=== PATIENT | male | born 1955 | race African-American/Black ===

== ENCOUNTER 2022-02-15 19:57 | Emergency (ER) | payer OTHER ==
[2022-02-14] MEDS: IV RINGERS SOLUTION,LACTATED 1,000 ML IV SCH (20:45)
[~2022-02-15] VITALS: Ht 193 cm; Wt 97.7 kg
--- NOTE | 2022-02-15 20:04 | PHYS DOC ---
General Adult HPI: HPI: ".. I ve been feeling sick since .. fever, chills, aches... like I got the flu or something.. I got my Flu, COVID and Pneumonia shots... " Patient is a 66 year old male who presents with above hx and complaints generalized myalgia, arthralgia, malaise, fever, chills, and a nonproductive cough since Friday the January. Patient states she is up-to-date on flu vaccinations Pneumovax and COVID. No recent travel. No specific ill contacts. Patient normally follows with Dr. Villarreal. Review of Systems: Review of Systems: Constitutional: History of fever or chills Eyes: Denies change in visual acuity HENT: Denies nasal congestion or sore throat Respiratory: History nonproductive cough and shortness of breath Cardiovascular: Denies chest pain or edema GI: Denies abdominal pain, vomiting, bloody stools or diarrhea. Some nausea complaints : Denies dysuria Musculoskeletal: Complains of generalized muscle, back pain and joint pain Integument: Denies rash Neurologic: Denies headache, focal weakness or sensory changes Endocrine: Denies polyuria or polydipsia Lymphatic: Denies swollen glands Psychiatric: Denies depression or anxiety Family History: Family History: Noncontributory to presentation Current Medications: Current Meds: No known drug allergies Allergies: Allergies: See nursing for home meds Physical Exam: PE: Constitutional: Moderate acute distress, non-toxic appearance. [] HENT: Normocephalic, atraumatic, bilateral external ears normal, oropharynx moist, no oral exudates, nose swollen turbinates clear rhinorrhea Eyes: PERRLA, EOMI, conjunctiva normal, no discharge. [] Neck: Normal range of motion, no tenderness, supple, no stridor. [] Cardiovascular: Bradycardia cardia heart rate regular rhythm, no murmur [] Lungs & Thorax: Bilateral breath sounds equal apex with few scattered wheezes on auscultation [] Abdomen: Bowel sounds normal, soft, no tenderness, no masses, no pulsatile masses. [] Skin: Warm, dry, no erythema, no rash. [] Back: No tenderness, no CVA tenderness. [] Extremities: Generalized muscle and joint tenderness, no cyanosis, no clubbing, ROM intact, no edema. [] No cording in legs appreciated. Neurologic: Alert and oriented X 3, normal motor function, normal sensory function, no focal deficits noted. [] Psychologic: Affect normal, judgement normal, mood normal. [] EKG: EKG: My interpretation of EKG shows a sinus bradycardia at 60 bpm. There is a prolonged TX interval of 1000 ms. There is a right bundle branch block and RVH repolarization abnormality. But no findings of acute STEMI with contralateral changes. Time of EKG is 2056 hrs. [] My interpretation second EKG shows sinus rhythm at 61 bpm. Still slight prolonged TX, bundle branch block and RVH but no acute interval change. No findings of acute STEMI or contralateral changes. Time of EKG is 00 39 minutes Radiology/Procedures: Radiology/Procedures: [] IMAGING REPORT Signed PATIENT: MICHAEL SANTANAACCOUNT: [id number] : 1955 LOCATION: ER AGE: 66 SEX: M EXAM STATUS: REG ER ORD. PHYSICIAN: JESUS MAGDALENO MD REASON: OMNI 350,100ML IV.Dyspnea, elevated D-dimer.HX EMPHYSEMA PROCEDURE: CT ANGIOGRAPHY CHEST PQRS Compliance Statement: One or more of the following individualized dose reduction techniques were utili zed for this examination: 1. Automated exposure control 2. Adjustment of the mA and/or kV according to patient size 3. Use of iterative reconstruction technique CTA CHEST 02/15/2022 10:54 PM INDICATION: Elevated d-dimer. Emphysema. Dyspnea. COMPARISON: None available TECHNIQUE: Axial CT images of the chest were obtained after the intravenous administration of nonionic contrast. Coronal and sagittal reformats are provided. Maximum intensity projection images of the thoracic vasculature are provided. FINDINGS: The thyroid gland is normal in appearance. There are no pathologically enlarged axillary, mediastinal or hilar lymph nodes. The heart size is within normal limits. No significant pericardial effusion. Thoracic aorta is normal in course and caliber. Moderate centrilobular and paraseptal pulmonary emphysema. There is adequate opacification of the pulmonary arterial system. There there are no filling defects within the pulmonary arterial system to suggest acute or chronic pulmonary embolus. 8 mm solid noncalcified pulmonary nodule identified within the posterior right upper lobe (series 4, image 45). There are no pulmonary infiltrates. There are no pleural effusions. No pulmonary vascular congestion or pneumothorax. Bronchial wall thickening compatible with nonspecific bronchitis. Visualized portions of the upper abdomen are within normal limits. No suspicious osseous lesions are visualized. IMPRESSION: There is no evidence for acute or chronic pulmonary embolism. 8 mm solid noncalcified pulmonary nodule in the posterior right upper lobe. Fleischner guidelines for incidentally detected pulmonary nodules suggests CT chest at 6-12 months, then consider CT at 18-24 months for single solid noncalcified pulmonary nodule 6-8 mm in size. Moderate centrilobular and paraseptal pulmonary emphysema. Bronchial wall thickening compatible with nonspecific bronchitis. Electronically signed by: Brandt Gomez MD (02/15/2022 11:54 PM) [facility] DICTATED AND SIGNED BY: BRANDT GOMEZ MD DATE: 02/15/22 [id number] CC: BRENNAN VILLARREAL MD; JESUS MAGDALENO MD ~ [place] [address] IMAGING REPORT Signed PATIENT: MICHAEL SANTANAACCOUNT: [id number] : 1955 LOCATION: ER AGE: 66 SEX: M EXAM STATUS: REG ER ORD. PHYSICIAN: JESUS MAGDALENO MD REASON: dyspnea PROCEDURE: PORTABLE CHEST 1V XR CHEST 1V 02/15/2022 8:29 PM INDICATION: Dyspnea COMPARISON: 09/27/2008 TECHNIQUE: Portable frontal view of the chest is provided. FINDINGS: The cardiomediastinal silhouette is within normal limits. Lungs are clear. There are no significant pleural effusions. There is no pulmonary vascular congestion. No pneumothorax. No suspicious osseous abnormality. IMPRESSION: There is no acute cardiopulmonary process. Electronically signed by: Brandt Gomez MD (02/15/2022 9:04 PM) [facility] DICTATED AND SIGNED BY: BRANDT GOMEZ MD DATE: 02/15/22 0578 CC: BRENNAN VILLARREAL MD; JESUS MAGDALENO MD ~ Heart Score: C/O Chest Pain: N/A Risk Factors: Risk Factors: DM, Current or recent (<one month) smoker, HTN, HLP, family history of CAD, obesity. Risk Scores: Score 0 - 3: 2.5% MACE over next 6 weeks - Discharge Home Score 4 - 6: 20.3% MACE over next 6 weeks - Admit for Clinical Observation Score 7 - 10: 72.7% MACE over next 6 weeks - Early Invasive Strategies Course & Med Decision Making: Course & Med Decision Making Pertinent Labs and Imaging studies reviewed. (See chart for details) Use MDI two puffs four times a day. Take Zofran for nausea and vomiting. Zithromax 250 day. Tylenol and ibuprofen for discomfort. Follow-up primary care. Impression: 1. Viral syndrome 2. Bronchiectasis 3. Emphysema/COPD 4. CK= 853 5. Elevation D-dimer 1.02 [] Dragon Disclaimer: Dragon Disclaimer: This electronic medical record was generated, in whole or in part, using a voice recognition dictation system. Departure Departure: Referrals: BRENNAN VILLARREAL MD (PCP) Scripts Azithromycin (ZITHROMAX) 250 Mg Tablet 250 MG PO DAILY for ANTI-BIOTIC, #5 TAB 0 Refills Prov: JESUS MAGDALENO MD 02/16/22 Ondansetron Hcl (ONDANSETRON HCL) 8 Mg Tablet 8 MG PO QIDPRN PRN for NAUSEA/VOMITING, #30 TAB Prov: JESUS MAGDALENO MD 02/16/22 Dragon Disclaimer This chart was dictated in whole or in part using Voice Recognition software in a busy, high-work load, and often noisy Emergency Department environment. It may contain unintended and wholly unrecognized errors or omissions. JESUS MAGDALENO MD Feb 15, 2022 20:04
[2022-02-15] MEDS ORDERED: KETOROLAC 30 MG/ML VIAL. IVP ONE (21:00)
--- NOTE | 2022-02-15 21:06 | RAD ---
XR CHEST 1V 02/15/2022 8:29 PM INDICATION: Dyspnea COMPARISON: 09/27/2008 TECHNIQUE: Portable frontal view of the chest is provided. FINDINGS: The cardiomediastinal silhouette is within normal limits. Lungs are clear. There are no significant pleural effusions. There is no pulmonary vascular congestion. No pneumothora x. No suspicious osseous abnormality. IMPRESSION: There is no acute cardiopulmonary process. Electronically signed by: Fany Harmon MD (02/15/2022 9:04 PM) [facility]
[2022-02-15 21:13] LABS: BASO # 0.1 x10^3/uL (0.0-0.2); BASO % 1 % (0-3); EOS # 0.1 x10^3/uL (0.0-0.7); EOS % 1 % (0-3); HEMATOCRIT 45.7 % (39.0-53.0); LYMPH # 1.4 x10^3/uL (1.0-4.8); LYMPH % 16 % (24-48); MEAN CORPUSCULAR HEMOGLOBIN 28 pg (25-35); MEAN CORPUSCULAR HGB CONC 33 g/dL (31-37); MEAN CORPUSCULAR VOLUME 87 fL (79-100); MONO # 0.9 x10^3/uL (0.0-1.1); MONO % 11 % (0-9); NEUT # 6.4 x10^3uL (1.8-7.7); NEUT % 72 % (31-73); PLATELET COUNT 320 x10^3/uL (140-400); RED BLOOD COUNT 5.28 x10^6/uL (4.30-5.70); WHITE BLOOD COUNT 8.8 x10^3/uL (4.0-11.0)
[2022-02-15] MEDS ORDERED: IV RINGERS SOLUTION,LACTATED 1,000 ML IV ONE (21:15)
[2022-02-15] MEDS ORDERED: oxyCODONE/APAP 5/325 1 TAB TABLET PO ONE (21:15)
[2022-02-15 21:20] LABS: CALCIUM 9.1 mg/dL (8.5-10.1); CREATININE 0.7 mg/dL (0.7-1.3); GFR 137.4
[2022-02-15 21:28] LABS: INFLUENZA A PATIENT NEGATIVE (NEGATIVE); INFLUENZA B PATIENT NEGATIVE (NEGATIVE)
[2022-02-15 21:33] LABS: ALBUMIN 3.7 g/dL (3.4-5.0); DIRECT BILIRUBIN 0.1 mg/dL (0.0-0.2); MAGNESIUM 2.2 mg/dL (1.8-2.4); TOTAL BILIRUBIN 0.5 mg/dL (0.2-1.0); TOTAL PROTEIN 7.1 g/dL (6.4-8.2)
[2022-02-15 21:37] LABS: AMPHETAMINE/METHAMPHETAMINE NEG (NEG); BARBITURATES NEG (NEG); BENZODIAZEPINES NEG (NEG); CANNABINOIDS NEG (NEG); COCAINE NEG (NEG); METHADONE NEG (NEG); OPIATES NEG (NEG); PHENCYCLIDINE NEG (NEG)
[2022-02-15 21:40] LABS: BACTERIA,URINE 0 /HPF (0-FEW); CLARITY,URINE CLEAR; COLOR,URINE YELLOW; GLUCOSE,URINE NEG (NEG); NITRITE,URINE NEG (NEG); RBC,URINE 0 /HPF (0-2); WBC,URINE 0 /HPF (0-4)
[2022-02-15] MEDS ORDERED: IOHEXOL 350 MG/ML 100 ML VIAL. IV ONE (23:00)
[2022-02-15] MEDS: IV RINGERS SOLUTION,LACTATED 1,000 ML IV SCH (23:46)
--- NOTE | 2022-02-15 23:56 | RAD ---
PQRS Compliance Statement: One or more of the following individualized dose reduction techniques were utilized for this examinat ion: 1. Automated exposure control 2. Adjustment of the mA and/or kV according to patient size 3. Use of iterative reconstruction technique CTA CHEST 02/15/2022 10:54 PM INDICATION: Elevated d-dimer. Emphysema. Dyspnea. COMPARISON: None available TECHNIQUE: Axial CT images of the chest were obtained after the intravenous administration of nonioni c contrast. Coronal and sagittal reformats are provided. Maximum intensity projection images of the t horacic vasculature are provided. FINDINGS: The thyroid gland is normal in appearance. There are no pathologically enlarged axillary, mediastinal or hilar lymph nodes. The heart size is within normal limits. No significant pericardial effusion. T horacic aorta is normal in course and caliber. Moderate centrilobular and paraseptal pulmonary emphysema. There is adequate opacification of the pul monary arterial system. There there are no filling defects within the pulmonary arterial system to carpio ggest acute or chronic pulmonary embolus. 8 mm solid noncalcified pulmonary nodule identified within the posterior right upper lobe (series 4, image 45). There are no pulmonary infiltrates. There are no pleural effusions. No pulmonary vascular congestion or pneumothorax. Bronchial wall thickening compatible with nonspecific bronchitis. Visualized portions of the upper abdomen are within normal limits. No suspicious osseous lesions are visualized. IMPRESSION: There is no evidence for acute or chronic pulmonary embolism. 8 mm solid noncalcified pulmonary nodule in the posterior right upper lobe. Fleischner guidelines for incidentally detected pulmonary nodules suggests CT chest at 6-12 months, then consider CT at 18-24 months for single solid noncalcified pulmonary nodule 6-8 mm in size. Moderate centrilobular and paraseptal pulmonary emphysema. Bronchial wall thickening compatible with nonspecific bronchitis. Electronically signed by: Fany Harmon MD (02/15/2022 11:54 PM) [facility]
[2022-02-16] MEDS ORDERED: AZIT250T PO (00:26)
[2022-02-16] MEDS ORDERED: ONDA-85 PO (00:26)
[2022-02-16] MEDS ORDERED: AZITHROMYCIN 250 MG TABLET. PO ONE (00:30)
[2022-02-16] MEDS ORDERED: ALBUTEROL SULFATE 8GM INHALER. INH ONE (00:30)
[2022-02-16 01:06] VITALS: BP 114/71
--- NOTE | 2022-02-17 01:09 | EKG ---
[address] [address] Test Date: 2022-02-15 Test Time: 20:57:09 Pat Name: MICHAEL SANTANA Department: Room: Gender: M Branch Lead: KELVIN : 1955 Requested By: JESUS MAGDALENO Order Number: [id number] Reading MD: Measurements Intervals [place] Rate: 60 P: 46 MT: 232 QRS: 35 QRSD: 142 T: 65 QT: 386 QTc: 386 Interpretive Statements SINUS RHYTHM PROLONGED MT INTERVAL RIGHT BUNDLE BRANCH BLOCK RVH WITH REPOLARIZATION ABNORMALITY ABNORMAL ECG RI6.02 No previous ECG available for comparison
--- NOTE | 2022-02-17 01:10 | EKG ---
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
[2022-02-17] MEDS ORDERED: ONDA4TAB12 PO (15:42)
== END 2022-02-16 01:16 | disposition home or self-care (01) ==
LOC: ER 20:06
DX: B34.9 Viral infection, unspecified (principal); J47.9 Bronchiectasis, uncomplicated; R79.1 Abnormal coagulation profile; Z20.822 Contact with and (suspected) exposure to COVID-19
CPT/HCPCS: 36415; 71045; 71275; 80048; 80076; 80307; 81001; 82550; 83690; 83735; 83880; 84443; 84484; 85025; 85379; 85610; 85730; 87428; 93005; 94640; 96361; 96374; 99285; J1885; J7120; 94664

== ENCOUNTER 2022-02-17 10:40 | Emergency (ER) | payer OTHER ==
[~2022-02-17] VITALS: Ht 193 cm; Wt 97.7 kg
[~2022-02-17 10:40] MED LIST: AZIT250T PO; ONDA-85 PO
[2022-02-17] MEDS ORDERED: KETOROLAC 15 MG/ML VIAL. IVP ONE (11:00)
[2022-02-17] MEDS ORDERED: ACETAMINOPHEN 500 MG TABLET PO ONE (11:00)
[2022-02-17] MEDS ORDERED: diphenhydrAMINE 50 MG/ML VIAL IVP ONE (11:00)
[2022-02-17] MEDS ORDERED: IV RINGERS SOLUTION,LACTATED 1,000 ML IV ONE (11:00)
--- NOTE | 2022-02-17 11:02 | PHYS DOC ---
Past History Additional Past Medical Histor: EPHYSEMA Past Surgical History: Other Additional Past Surgical Histo: COLONOSCOPY Adult General Chief Complaint Chief Complaint: ABDOMINAL PAIN HPI HPI Patient is a 66-year-old male who presents with a chief complaint of left lower quadrant abdominal pain that started over the last couple of days, 6 out of 10 and dull and achy in nature with no radiation. States he had some mild nausea but no vomiting. States he had a decreased appetite but has been drinking some fluids. States his urine and stool are normal for him with no blood in either. Denies any recent travels, traumas, fevers, chest pain, shortness of breath. Denies any numbness/weakness/tingling. States he is making urine and stool normally for him. Denies any alcohol or drug use. States that he did have some viral symptoms couple days ago was in the emergency department for that. Review of Systems Review of Systems Review of systems otherwise unremarkable except noted in HPI Allergies Allergies Allergies Coded Allergies Type Severity Reaction Last Updated Verified No Known Drug Allergies 02/15/22 No Physical Exam Physical Exam Constitutional: Well developed, well nourished, no acute distress, non-toxic appearance. [] HENT: Normocephalic, atraumatic, bilateral external ears normal, oropharynx moist, no oral exudates, nose normal. [] Eyes: conjunctiva normal, no discharge. [] Neck: Normal range of motion, no tenderness, supple, no stridor. [] Cardiovascular:Heart rate regular rhythm, no murmur [] Lungs & Thorax: Bilateral breath sounds clear to auscultation [] Abdomen: soft, generalized tenderness around umbilicus with no rebound or guarding,, no masses, no pulsatile masses. [] Skin: Warm, dry, no erythema, no rash. [] Back: No tenderness, no CVA tenderness. [] Extremities: No tenderness, no cyanosis, no clubbing, ROM intact, no edema. [] Neurologic: Alert and oriented X 3, normal motor function, normal sensory function, no focal deficits noted. [] Psychologic: Affect normal, judgement normal, mood normal. [] EKG EKG [] Radiology/Procedures Radiology/Procedures [] Heart Score C/O Chest Pain: No Risk Factors: Risk Factors: DM, Current or recent (<one month) smoker, HTN, HLP, family history of CAD, obesity. Risk Scores: Risk Factors: DM, Current or recent (<one month) smoker, HTN, HLP, family history of CAD, obesity. Course & Med Decision Making Course & Med Decision Making Patient is a 66-year-old male who presents with abdominal pain around left lower quadrant and umbilicus Vital signs not concerning. Physical exam noted above. Given medicines for pain other than opiates as patient is on Suboxone CTA from 2 days [address] concerning. [address] today suggestive of colitis/gastritis. Given GI cocktail. Laboratory analysis not concerning. Discussed all findings with patient. Discussed diet and hydration over the next couple of days to allow for bowel rest and advance of diet over time. Given nausea medicine for home. Discussed symptom management including PPI. Advised to follow-up with primary care physician in the morning to discuss ED visit Gave return precautions to the ED. Patient grateful, verbalized understanding and agreed with plan of discharge [] Dragon Disclaimer Dragon Disclaimer This electronic medical record was generated, in whole or in part, using a voice recognition dictation system. Departure Departure: Impression: Primary Impression: Abdominal pain Additional Impressions: Gastroenteritis Colitis Disposition: HOME / SELF CARE / HOMELESS Condition: STABLE Referrals: BRENNAN PRYOR MD (PCP) Patient Instructions: Colitis, Diet for Gastroesophageal Reflux Disease, Adult, Gastroesophageal Reflux Disease, Adult Additional Instructions: Thank for coming into the emergency department tonight and allowing us to take care of you. Please read the attached information carefully go over things we discussed. Over the next couple of days please eat only a light clear diet with lots of fluids and nothing heavy, no alcohol to no coffee. Please advance her diet as tolerated in a couple of days back to normal to allow some bowel rest. Please continue your home medications and you can include Tylenol at 1000 mg every 8 hours, ibuprofen 800 mg every 8 hours and Benadryl 50 mg every 6 hours. Please also add medicine for heartburn, omeprazole which you can get [id number] take once daily. Please begin taking Tums as well, 3 times a day with meals. Please follow-up tomorrow with your primary care physician update on your ED visit and set up a follow-up as soon as you can. Please come back with new or concerning symptoms as discussed. Problem Qualifiers RODO HART MD Feb 17, 2022 11:02
--- NOTE | 2022-02-17 11:28 | RAD ---
XR CHEST 1V Clinical History: Reason: cardiac w/u / Spl. Instructions: / History: Technique: AP view of the chest was obtained at 02/17/2022 11:11 AM. Comparison: February 15, 2022. Findings: The cardiomediastinal silhouette is normal. The pulmonary vasculature is normal. There is reticular o pacities throughout the lower right lung with curly B lines. Impression: Minimal interstitial infiltrate on the right likely due to fluid overload. Electronically signed by: Faraz King III, MD (02/17/2022 11:26 AM) [facility]
[2022-02-17 12:07] LABS: BASO # 0.1 x10^3/uL (0.0-0.2); BASO % 1 % (0-3); EOS # 0.1 x10^3/uL (0.0-0.7); EOS % 1 % (0-3); HEMATOCRIT 48.8 % (39.0-53.0); LYMPH # 1.5 x10^3/uL (1.0-4.8); LYMPH % 18 % (24-48); MEAN CORPUSCULAR HEMOGLOBIN 29 pg (25-35); MEAN CORPUSCULAR HGB CONC 33 g/dL (31-37); MEAN CORPUSCULAR VOLUME 87 fL (79-100); MONO # 0.9 x10^3/uL (0.0-1.1); MONO % 11 % (0-9); NEUT % 69 % (31-73); PLATELET COUNT 326 x10^3/uL (140-400); RED BLOOD COUNT 5.61 x10^6/uL (4.30-5.70); RED CELL DISTRIBUTION WIDTH 14.8 % (11.5-14.5); WHITE BLOOD COUNT 8.6 x10^3/uL (4.0-11.0)
--- NOTE | 2022-02-17 12:25 | RAD ---
CT ABDOMEN+PELVIS WO dated 02/17/2022 12:01 PM Indication:Reason: LLQ pain / Spl. Instructions: D. CONDRA ORDERED WITHOUT IV OR PO / History: Comparison: No comparison is available. Technique: Helical noncontrast images were performed. One or more of the following individualized dose reduction techniques were utilized for this examinat ion: 1. Automated exposure control 2. Adjustment of the mA and/or kV according to patient size 3. Use of iterative reconstruction technique Findings: There is minimal basilar atelectasis. The liver and spleen are homogeneous in density and normal in c onfiguration. Evaluation of the solid organs is limited without IV contrast. The kidneys show no appa rent mass, calcification or obstruction. The adrenal glands are not enlarged. The pancreas appears no rmal. No retroperitoneal or mesenteric adenopathy is seen. There is no apparent abdominal soft tissue mass. There is mild haziness within the fat posterior to the transverse colon within mesenteric fat, but no enlarged lymph nodes are seen. There may be some thickening of the wall the gastric antrum. N o other inflammatory process is apparent. Images through the pelvis show no apparent abnormality of the distal ureters or bladder. No pelvic or inguinal adenopathy is seen. There is no apparent pelvic soft tissue mass. There is a small amount o f free fluid in the cul-de-sac. There may be some thickening of the wall of the sigmoid colon and rec subhash. Evaluation is somewhat limited by noncontrast technique. There is no evidence of diverticulitis. IMPRESSION: There is a small amount of free fluid in the pelvis. This would not typically be seen in an adult mal e. This may be reactive to an inflammatory process. There is possibly some colitis of the distal colo n. Mild edema is suggested within the abdominal fat through the stomach and transverse colon. This is no nspecific. There may be mild wall thickening of the gastric antrum that could related gastritis, alth ough no history of epigastric pain was given. Electronically signed by: Tab Cornejo Jr., MD (02/17/2022 12:23 PM) [id number]
[2022-02-17 13:04] LABS: LIPASE < 10 U/L (73-393)
[2022-02-17 13:33] LABS: BACTERIA,URINE 0 /HPF (0-FEW); CLARITY,URINE CLEAR; COLOR,URINE YELLOW; GLUCOSE,URINE NEG (NEG); NITRITE,URINE NEG (NEG); RBC,URINE 0 /HPF (0-2); WBC,URINE 0 /HPF (0-4)
[2022-02-17 13:51] LABS: ANION GAP 5 (6-14); BLOOD UREA NITROGEN 9 mg/dL (8-26); BUN/CREATININE RATIO 11 (6-20); CALCIUM 8.6 mg/dL (8.5-10.1); CARBON DIOXIDE 24 mmol/L (21-32); CHLORIDE 103 mmol/L (98-107); CREATININE 0.8 mg/dL (0.7-1.3); GFR 117.8; GLUCOSE 96 mg/dL (70-99); SODIUM 132 mmol/L (136-145)
[2022-02-17 13:57] LABS: ALBUMIN 3.1 g/dL (3.4-5.0); ALK PHOS 69 U/L (46-116); ALT (SGPT) 28 U/L (16-63); AST (SGOT) 21 U/L (15-37); TOTAL BILIRUBIN 0.4 mg/dL (0.2-1.0); TOTAL PROTEIN 6.2 g/dL (6.4-8.2)
[2022-02-17] MEDS ORDERED: LIDO:MAALOX 1:1 20 ML SINGLE DOSE. PO ONE (14:45)
[2022-02-17] MEDS ORDERED: ONDA4TAB12 PO (15:42)
[2022-02-17 16:10] VITALS: BP 108/69
--- NOTE | 2022-02-17 19:00 | EKG ---
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
== END 2022-02-17 16:10 | disposition home or self-care (01) ==
LOC: ER 10:40
DX: K52.9 Noninfective gastroenteritis and colitis, unspecified (principal)
CPT/HCPCS: 36415; 71045; 74176; 80053; 81001; 83690; 84484; 85025; 93005; 96361; 96374; 96375; 99285; J1200; J1885; J7120

== ENCOUNTER 2022-02-19 16:42 | Emergency (ER) | payer OTHER ==
[~2022-02-19] VITALS: Ht 193 cm; Wt 97.7 kg
[~2022-02-19 16:42] MED LIST changes: +ONDA4TAB12 PO
--- NOTE | 2022-02-19 17:41 | PHYS DOC ---
Past History Additional Past Medical Histor: EPHYSEMA (FITZ SOTELO APRN) Past Surgical History: No Surgical History Additional Past Surgical Histo: COLONOSCOPY (FITZ SOTELO APRN) Alcohol Use: None (FITZ SOTELO APRN) General Adult EDM: Chief Complaint: FLANK PAIN HPI: HPI: Patient is a 66-year-old male who presents to the emergency department for right flank pain. Patient was seen in this emergency department previously within the last 5 days with the last visit being on February 17. At that time he was complaining of generalized abdominal pain and whole body pain. He had CT imaging performed previously which did show colitis and gastritis. Patient was advised at that time to take a PPI which she did not start taking. Patient is unsure when his right flank pain started and thinks that it may have been going on for the last 3 days. Patient does not have a history of kidney stones. He has a history of hypertension, diabetes and emphysema. Patient denies nausea, vomiting, diarrhea, urinary complaints, fevers. He rates his pain 10 out of 10 and has been taking Tylenol and ibuprofen as well as Pepto-Bismol. (FITZ SOTELO APRN) Review of Systems: Review of Systems: Constitutional: See HPI GI: See HPI : See HPI Musculoskeletal: See HPI (FITZ SOTELO APRN) Current Medications: Current Meds: Current Medications Medications (Trade) Dose Ordered Sig/Mike Start Time Stop Time Status Last Admin Dose Admin Ketorolac Tromethamine (Toradol 30mg Vial) 30 mg 1X ONCE 02/19/22 17:45 02/19/22 17:46 UNV Sodium Chloride 1,000 ml @ 1,000 mls/hr Q1H 02/19/22 17:45 02/19/22 18:44 UNV (FITZ SOTELO APRN) Allergies: Allergies: Allergies Coded Allergies Type Severity Reaction Last Updated Verified No Known Drug Allergies 02/17/22 No (FITZ SOTELO APRN) Physical Exam: PE: Constitutional: Well developed, well nourished, no acute distress, non-toxic appearance. [] HENT: Normocephalic, atraumatic, bilateral external ears normal, oropharynx moist, no oral exudates, nose normal. [] Eyes: PERRL, EOMI, conjunctiva normal, no discharge. [] Neck: Normal range of motion, no tenderness, supple, no stridor. [] Cardiovascular:Heart rate regular rhythm, no murmur [] Lungs & Thorax: Bilateral breath sounds clear to auscultation [] Abdomen: Bowel sounds normal, soft, mild right upper quadrant tenderness/epigastric with palpation, Navarrete sign no abdominal rigidity or guarding,, no masses, no pulsatile masses. [] Skin: Warm, dry, no erythema, no rash. [] Back: No tenderness, right-sided CVA tenderness Extremities: No tenderness, no cyanosis, no clubbing, ROM intact, no edema. [] Neurologic: Alert and oriented X 3, normal motor function, normal sensory function, no focal deficits noted. [] Psychologic: Affect normal, judgement normal, mood normal. [] (FITZ SOTELO APRN) Current Patient Data: Labs: Laboratory Tests Test 02/19/22 18:49 02/19/22 19:27 Urine Collection Type Unknown Urine Color Yellow Urine Clarity Clear Urine pH 6.5 Urine Specific [place] 1.015 Urine Protein Neg Urine Glucose (UA) Neg mg/dL Urine Ketones (Stick) Neg mg/dL Urine Blood Neg Urine Nitrite Neg Urine Bilirubin Neg Urine Urobilinogen Dipstick 0.2 mg/dL Urine Leukocyte Esterase Neg Urine RBC 0 /HPF Urine WBC 0 /HPF Urine Bacteria 0 /HPF Influenza Type A (Rapid) Negative Influenza Type B (Rapid) Negative SARS-CoV-2 Antigen (Rapid) Negative White Blood Count 7.6 x10^3/uL Red Blood Count 4.96 x10^6/uL Hemoglobin 14.3 g/dL Hematocrit 43.0 % Mean Corpuscular Volume 87 fL Mean Corpuscular Hemoglobin 29 pg Mean Corpuscular Hemoglobin Concent 33 g/dL Red Cell Distribution Width 14.5 % Platelet Count 272 x10^3/uL Neutrophils (%) (Auto) 78 % Lymphocytes (%) (Auto) 14 % Monocytes (%) (Auto) 6 % Eosinophils (%) (Auto) 1 % Basophils (%) (Auto) 1 % Neutrophils # (Auto) 5.9 x10^3uL Lymphocytes # (Auto) 1.1 x10^3/uL Monocytes # (Auto) 0.5 x10^3/uL Eosinophils # (Auto) 0.1 x10^3/uL Basophils # (Auto) 0.1 x10^3/uL Sodium Level 136 mmol/L Potassium Level 4.3 mmol/L Chloride Level 101 mmol/L Carbon Dioxide Level 25 mmol/L Anion Gap 10 Blood Urea Nitrogen 7 mg/dL Creatinine 0.8 mg/dL Estimated GFR (Cockcroft-Gault) 117.8 BUN/Creatinine Ratio 9 Glucose Level 99 mg/dL Calcium Level 9.0 mg/dL Total Bilirubin 0.4 mg/dL Aspartate Amino Transf (AST/SGOT) 13 U/L Alanine Aminotransferase (ALT/SGPT) 24 U/L Alkaline Phosphatase 80 U/L Total Protein 6.4 g/dL Albumin 3.5 g/dL Albumin/Globulin Ratio 1.2 Lipase 22 U/L Current Medications Medications (Trade) Dose Ordered Sig/Mike Route PRN Reason Start Time Stop Time Status Last Admin Dose Admin Sodium Chloride 1,000 ml @ 1,000 mls/hr Q1H IV 02/19/22 17:45 02/19/22 18:44 DC 02/19/22 18:04 Ketorolac Tromethamine (Toradol 30mg Vial) 30 mg 1X ONCE IVP 02/19/22 17:45 02/19/22 17:46 DC 02/19/22 18:02 Morphine Sulfate (Morphine 2mg Syringe) 2 mg 1X ONCE IV 02/19/22 19:15 02/19/22 19:16 DC 02/19/22 19:16 Vital Signs: Vital Signs Date Time Temp Pulse Resp B/P (MAP) Pulse Ox O2 Delivery O2 Flow Rate FiO2 02/19/22 17:30 88 20 124/72 (89) 100 Room Air (FITZ SOTELO APRN) EKG: EKG: [] (FITZ SOTELO APRN) Radiology/Procedures: Radiology/Procedures: []Exam: CT of abdomen and pelvis without contrast INDICATION: Right flank pain TECHNIQUE: Sequential axial images through the abdomen and pelvis obtained without IV contrast. Sagittal and coronal reformatted images were reconstructed from the axial data and reviewed. Exposure: One or more of the following in the visualized dose reduction techniques were utilized for this examination: 1. Automated exposure control 2. Adjustment of the MA and/or KV according to patient size 3. Use of iterative of reconstructive technique Comparisons: CT 02/17/2022 FINDINGS: Heart size is normal. No pericardial effusion. Mucous plugging is noted in the lower lobes. Paraseptal emphysema is again noted. No pleural effusion. Evaluation of solid abdominal organs is limited secondary to noncontrast technique. Liver, spleen, gallbladder and adrenals are unremarkable. There is inflammation surrounding the pancreatic head involving the gastric antrum and proximal duodenum with effacement of the adjacent fat planes. No discrete pancreatic ductal dilatation is identified on this noncontrast study. No perinephric inflammation or hydronephrosis. No renal or ureteral calculi are identified. Bladder is partially distended and not well evaluated. Prostate is not enlarged. Small amount of free fluid noted in the pelvis, similar to prior. No free intra- abdominal air. Large and small bowel are unremarkable. Appendix is normal. No obstruction. Abdominal aorta has normal course and caliber. There are several prominent mesenteric lymph nodes in the right upper quadrant mesentery adjacent to the pancreatic head. No suspicious osseous lesions or acute fractures. IMPRESSION: 1. Inflammatory changes surrounding the pancreatic head, gastric antrum and proximal duodenum. Findings could relate to pancreatitis or gastroenteritis. Correlate with lipase and symptomatology. Follow-up imaging following resolution of this acute inflammatory process is recommended. 2. Small amount of free fluid noted in the pelvis which is abnormal and likely related to the above inflammatory process. Electronically signed by: Fran Barton MD (02/19/2022 6:42 PM) [facility] DICTATED AND SIGNED BY: FRAN BARTON MD DATE: 02/19/221829 CC: BRENNAN PRYOR MD; EMERGENCY,DEPARTMENT; FITZ SOTELO APRN ~ (FITZ SOTELO APRN) Heart Score: C/O Chest Pain: N/A Risk Factors: Risk Factors: DM, Current or recent (<one month) smoker, HTN, HLP, family history of CAD, obesity. Risk Scores: Score 0 - 3: 2.5% MACE over next 6 weeks - Discharge Home Score 4 - 6: 20.3% MACE over next 6 weeks - Admit for Clinical Observation Score 7 - 10: 72.7% MACE over next 6 weeks - Early Invasive Strategies (FITZ SOTELO APRN) Course & Med Decision Making: Course & Med Decision Making Pertinent Labs and Imaging studies reviewed. (See chart for details) [] Patient presents to the emergency department for right flank pain. Patient is tender in his right upper quadrant epigastric region. Work-up in the ER consisted of blood work, urinalysis and CT imaging of abdomen and pelvis. Patient treated with IV fluids and pain medication. Patient CBC was unremarkable, he did not have any leukocytosis. Negative CMP and lipase. Urinalysis showed no acute infection. Negative for influenza and Covid testing. Patient CT scan shows inflammatory changes around the pancreatic head possibly pancreatitis versus gastroenteritis is read by the radiologist. Patient continues to have intractable abdominal pain is received multiple doses of IV pain medication. I discussed the findings with patient. He reports that his pain is not controlled I offered transfer to [facility] for GI consultation and IV pain medication. He is agreeable to transfer at this time. I contacted Dr. Britton with GI at [facility] place a consultation. I discussed patient's case with Dr. mancera who agreed to admit the patient under his services for pancreatitis. IV fluids, n.p.o. diet and pain medication ordered. No antibiotics ordered patient does not have any leukocytosis. (FITZ SOTELO APRN) Dragon Disclaimer: Dragon Disclaimer: This electronic medical record was generated, in whole or in part, using a voice recognition dictation system. (FITZ SOTELO APRN) Attending Co-Sign The patient was seen and interviewed as well as examined at the bedside. The chart was reviewed. The case was discussed. Agree with the plan of care. (HUMBERTO STEWART DO) Departure Departure: Impression: Primary Impression: Pancreatitis Qualified Codes: K85.90 - Acute pancreatitis without necrosis or infection, unspecified Disposition: 02 SHORT TERM HOSPITAL Condition: GOOD Referrals: BRENNAN PRYOR MD (PCP) FITZ SOTELO APRN Feb 19, 2022 17:40 HUMBERTO STEWART DO Feb 20, 2022 14:08
[2022-02-19] MEDS ORDERED: IV NORMAL SALINE 1,000ML 1,000 ML IV SCH (17:45)
[2022-02-19] MEDS ORDERED: KETOROLAC 30 MG/ML VIAL. IVP ONE (17:45)
--- NOTE | 2022-02-19 18:45 | RAD ---
Exam: CT of abdomen and pelvis without contrast INDICATION: Right flank pain TECHNIQUE: Sequential axial images through the abdomen and pelvis obtained without IV contrast. Sagit osiel and coronal reformatted images were reconstructed from the axial data and reviewed. Exposure: One or more of the following in the visualized dose reduction techniques were utilized for this examination: 1. Automated exposure control 2. Adjustment of the MA and/or KV according to patient size 3. Use of iterative of reconstructive technique Comparisons: CT 02/17/2022 FINDINGS: Heart size is normal. No pericardial effusion. Mucous plugging is noted in the lower lobes. Parasepta l emphysema is again noted. No pleural effusion. Evaluation of solid abdominal organs is limited secondary to noncontrast technique. Liver, spleen, gallbladder and adrenals are unremarkable. There is inflammation surrounding the pancreatic head involving the gastric antrum and proximal duode num with effacement of the adjacent fat planes. No discrete pancreatic ductal dilatation is identifie d on this noncontrast study. No perinephric inflammation or hydronephrosis. No renal or ureteral calculi are identified. Bladder is partially distended and not well evaluated. Prostate is not enlarged. Small amount of free fluid noted in the pelvis, similar to prior. No free intra-abdominal air. Large and small bowel are unremarkable. Appendix is normal. No obstruction. Abdominal aorta has normal course and caliber. There are several prominent mesenteric lymph nodes in the right upper quadrant mesentery adjacent to the pancreatic head. No suspicious osseous lesions or acute fractures. IMPRESSION: 1. Inflammatory changes surrounding the pancreatic head, gastric antrum and proximal duodenum. Findi ngs could relate to pancreatitis or gastroenteritis. Correlate with lipase and symptomatology. Follow -up imaging following resolution of this acute inflammatory process is recommended. 2. Small amount of free fluid noted in the pelvis which is abnormal and likely related to the above inflammatory process. Electronically signed by: Fran Newman MD (02/19/2022 6:42 PM) [facility]
[2022-02-19] MEDS ORDERED: MORPHINE SULFATE 2 MG/ML DISP.SYRIN. IV ONE (19:15)
[2022-02-19 19:29] LABS: BACTERIA,URINE 0 /HPF (0-FEW); CLARITY,URINE CLEAR; COLOR,URINE YELLOW; GLUCOSE,URINE NEG (NEG); NITRITE,URINE NEG (NEG); RBC,URINE 0 /HPF (0-2); UROBILINOGEN,URINE 0.2 mg/dL (0.2 mg/dL); WBC,URINE 0 /HPF (0-4)
[2022-02-19 19:31] LABS: INFLUENZA A PATIENT NEGATIVE (NEGATIVE); INFLUENZA B PATIENT NEGATIVE (NEGATIVE)
[2022-02-19 20:01] LABS: BASO # 0.1 x10^3/uL (0.0-0.2); BASO % 1 % (0-3); EOS # 0.1 x10^3/uL (0.0-0.7); EOS % 1 % (0-3); HEMOGLOBIN 14.3 g/dL (13.0-17.5); LYMPH # 1.1 x10^3/uL (1.0-4.8); LYMPH % 14 % (24-48); MEAN CORPUSCULAR HEMOGLOBIN 29 pg (25-35); MEAN CORPUSCULAR HGB CONC 33 g/dL (31-37); MEAN CORPUSCULAR VOLUME 87 fL (79-100); MONO # 0.5 x10^3/uL (0.0-1.1); MONO % 6 % (0-9); NEUT # 5.9 x10^3uL (1.8-7.7); NEUT % 78 % (31-73); PLATELET COUNT 272 x10^3/uL (140-400); RED BLOOD COUNT 4.96 x10^6/uL (4.30-5.70); RED CELL DISTRIBUTION WIDTH 14.5 % (11.5-14.5); WHITE BLOOD COUNT 7.6 x10^3/uL (4.0-11.0)
[2022-02-19 20:02] LABS: CREATININE 0.8 mg/dL (0.7-1.3); GFR 117.8; POTASSIUM 4.3 mmol/L (3.5-5.1)
[2022-02-19 20:08] LABS: ALBUMIN 3.5 g/dL (3.4-5.0); ALBUMIN/GLOBULIN RATIO 1.2 (1.0-1.7); TOTAL BILIRUBIN 0.4 mg/dL (0.2-1.0); TOTAL PROTEIN 6.4 g/dL (6.4-8.2)
[2022-02-19] MEDS ORDERED: MORPHINE SULFATE 4 MG/ML DISP.SYRIN. IV ONE (21:00)
[2022-02-19] MEDS ORDERED: IV NORMAL SALINE 1,000ML 1,000 ML IV ONE (21:00)
[2022-02-19 22:35] VITALS: BP 134/77
== END 2022-02-19 22:42 | disposition short-term general hospital (02) ==
LOC: ER 16:42
DX: K85.90 Acute pancreatitis without necrosis or infection, unspecified (principal); E11.9 Type 2 diabetes mellitus without complications; I10 Essential (primary) hypertension; Z20.822 Contact with and (suspected) exposure to COVID-19
CPT/HCPCS: 36415; 74176; 80053; 81001; 83690; 85025; 87428; 96361; 96374; 96375; 96376; 99285; C9803; J1885; J2270; J7030; U0003